=== PATIENT | male | born 1980 | race Caucasian/White ===

== ENCOUNTER 2017-03-18 23:21 | Emergency (ER) | payer SELFPAY ==
[~2017-03-18] VITALS: Ht 170.2 cm; Wt 90.9 kg
[2017-03-18] MEDS ORDERED: SODIUM CHLORIDE FLUSH 10 ML SYR IV PRN (23:25)
--- OUTSIDE RECORDS SUMMARY | 2017-03-18 23:28 | XMS REPORT | Continuity of Care Document ---
Author Author [facility] Address Unknown Phone Unavailable Allergies Active Description Code Type Severity Reaction Onset Reported/Identified Relationship to Patient Clinical Status Yes No Known Allergies No Known Allergies Drug Allergy Unknown N/A 03/29/2016 Medications Problems Procedures Results Test Result Range URINALYSIS, ROUTINE - 03/29/16 15:07 UA LEUKOCYTE ESTERASE DIPSTICK NEGATIVE NEGATIVE UA NITRITE DIPSTICK NEGATIVE NEGATIVE UA PROTEIN DIPSTICK NEGATIVE NEGATIVE UA GLUCOSE DIPSTICK NEGATIVE NEGATIVE UA KETONE DIPSTICK NEGATIVE NEGATIVE UA UROBILINOGEN DIPSTICK NORMAL NORMAL UA BILIRUBIN DIPSTICK 1+ NEGATIVE UA BLOOD DIPSTICK NEGATIVE NEGATIVE UA SPECIFIC GRAVITY >=1.030 1.015-1.025 UR PH 5.5 5.0-7.0 CBC W/DIFF - 03/29/16 15:32 BASOPHIL # 0.1 k/cumm 0.0-0.2 BASOPHIL % 1 % 0-1 EOSINOPHIL # 0.1 k/cumm 0.1-0.5 EOSINOPHIL % 1 % 2-4 GRANULOCYTE # 4.8 k/cumm 2.0-9.0 GRANULOCYTE % 63 % 50-75 LYMPHOCYTE # 2.1 k/cumm 1.0-4.0 LYMPHOCYTE % 28 % 20-30 MEAN CELL HGB 30.0 pg 27.0-33.0 MEAN CELL HGB CONCENTRATION 35.0 g/dL 32.0-37.0 MEAN CELL VOLUME 85.7 fl 80.0-100.0 MONOCYTE # 0.6 k/cumm 0.1-1.0 MONOCYTE % 8 % 4-6 RED BLOOD CELL 5.04 m/cumm 4.00-6.00 RED CELL DISTRIBUTION WIDTH 12.8 % 11.0- 15.6 WHITE BLOOD CELL 7.6 k/cumm 5.0-10.0 HEMOGLOBIN 15.1 gm/dL 14.0-18.0 HEMATOCRIT 43.2 % 40.0-54.0 PLATELET COUNT 235 k/cumm 150-400 HEPATIC FUNCTION PANEL - 05/10/16 15:32 BILI UNCONJUGATED 0.1 mg/dL 0.0-0.7 AST/SGOT 28 Units/L 10-37 ALT/SGPT 64 Units/L < 66 TOTAL PROTEIN 7.3 gm/dL 6.4-8.2 ALBUMIN 3.4 gm/dL 3.4-5.0 BILI TOTAL 0.2 mg/dL 0.0-1.0 ALKALINE PHOSPHATASE TOTAL 65 IU/L 45- 117 BILI CONJUGATED < 0.1 mg/dL 0.0-0.3 CHEM/HEM PROFILE-BEDSIDE - 03/29/16 15:34 POTASSIUM 3.8 mmol/L 3.5-5.3 METHOD Bedside ANION GAP 19 mmol/L 10-20 METHOD Bedside GLUCOSE 109 mg/dL 70-99 BLOOD UREA NITROGEN 15 mg/dL 7-20 CREATININE 0.9 mg/dL 0.7-1.3 HEMOGLOBIN 15.0 gm/dL 14.0-18.0 HEMATOCRIT 44.0 % 40.0-54.0 SODIUM 140 mmol/L 135-148 CHLORIDE 102 mmol/L 98-110 CARBON DIOXIDE 23 mmol/L 21-32 CALCIUM IONIZED 4.8 mg/dL 4.5-5.3 Encounters ACCT No. Visit Date/Time Discharge Status Pt. Type Provider Facility Loc./Unit Complaint [id number] 02/08/2016 00:00:00 02/08/2016 23: 59:59 CLS Outpatient [facility]
[2017-03-18 23:33] LABS: BASOPHILS % (AUTO) 0 % (0-2); EOSINOPHILS # (AUTO) 0.1 10^3uL; EOSINOPHILS % (AUTO) 1 % (0-4); LYMPHOCYTES # (AUTO) 4.4 X10^3; MEAN CORPUSCULAR HEMOGLOBIN 29.2 PG (26.0-34.0); MEAN CORPUSCULAR VOLUME 82 FL (80-100); MONOCYTES # (AUTO) 1.2 X10^3; MONOCYTES % (AUTO) 7 % (3-11); NEUTROPHILS # (AUTO) 11.3 X10^3; NEUTROPHILS % (AUTO) 66 % (51-67); PLATELET COUNT 291 10^3uL (150-450); WHITE BLOOD COUNT 17.08 10^3uL (4.0-11.0)
[2017-03-18 23:36] LABS: MEAN CORPUSCULAR HGB CONC 35.6 g/dL (31.0-37.0)
[2017-03-18 23:40] LABS: ALBUMIN 3.5 g/dL (3.4-5.0); ALKALINE PHOSPHATASE 57 U/L (38-126); ANION GAP 18.1 MEQ/L (3-15); BUN/CREATININE RATIO 13 (10-20); TOTAL PROTEIN 6.7 g/dL (6.4-8.5)
[2017-03-18] MEDS ORDERED: ceFAZolin 2,000 MG in SODIUM CHLORIDE 100 ML IV ONE (23:50)
[2017-03-18] MEDS ORDERED: ONDANSETRON 2 MG/ML (Z0FRAN) 2 ML VIAL IV ONE (23:50)
[2017-03-18] MEDS ORDERED: HYDROmorphone 1 MG/ML (DILAUDID) SYRINGE IV ONE (23:50)
[2017-03-19] MEDS ORDERED: SODIUM CHLORIDE IV ONE ×2 (00:30)
[2017-03-19] MEDS ORDERED: TRANEXAMIC ACID IV ONE ×2 (00:30)
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
== END 2017-03-19 01:00 | disposition short-term general hospital (02) ==
LOC: ED 23:24
DX: S01.01XA Laceration without foreign body of scalp, initial encounter (principal); S01.81XA Laceration without foreign body of other part of head, initial encounter; S01.311A Laceration without foreign body of right ear, initial encounter; S71.012A Laceration without foreign body, left hip, initial encounter; S31.821A Laceration without foreign body of left buttock, initial encounter; S72.142A Displaced intertrochanteric fracture of left femur, initial encounter for closed fracture; S09.90XA Unspecified injury of head, initial encounter; V44.5XXA Car driver injured in collision with heavy transport vehicle or bus in traffic accident, initial encounter; Y92.413 State road as the place of occurrence of the external cause; Y93.89 Activity, other specified
CPT/HCPCS: 36415; 71010; 72170; 73060; 80053; 80320; 85025; 85610; 85730; 86850; 86900; 86901; 86920; P9016; 99291

== ENCOUNTER → 2017-03-18 | Outpatient (CLI) | payer SELFPAY | LOC: EMS 22:58 | PROVIDERS: ATTEND Surgery | DX: S08.89XA Traumatic amputation of other parts of head, initial encounter (principal); S01.81XA Laceration without foreign body of other part of head, initial encounter; S71.002A Unspecified open wound, left hip, initial encounter; V44.5XXA Car driver injured in collision with heavy transport vehicle or bus in traffic accident, initial encounter; Y93.89 Activity, other specified; Y92.413 State road as the place of occurrence of the external cause ==

== ENCOUNTER 2017-04-13 10:35 | Outpatient (RCR) | payer SELFPAY ==
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
== END 2017-04-17 09:05 | disposition home or self-care (01) ==
LOC: PT 10:35
PROVIDERS: ATTEND Orthopaedic Surgery Orthopaedic Trauma
DX: S72.142D Displaced intertrochanteric fracture of left femur, subsequent encounter for closed fracture with routine healing (principal); V89.2XXD Person injured in unspecified motor-vehicle accident, traffic, subsequent encounter; Z48.00 Encounter for change or removal of nonsurgical wound dressing